=== PATIENT | male | born 1970 | race Caucasian/White ===

== ENCOUNTER 2017-12-05 18:13 | Emergency (ER) | payer OTHER, SELFPAY ==
--- NOTE | 2017-12-05 18:25 | DI.RAD.S_ITS ---
PROCEDURE: XR CHEST 1V INDICATIONS: chest pain TECHNIQUE: One view of the chest was acquired. COMPARISON: None. FINDINGS: Surgical changes and devices: None. Lungs and pleura: No pleural effusions or pneumothorax. Lungs are clear. Mediastinum: Mediastinal contours appear normal. Heart size is normal. Bones and chest wall: No suspicious bony lesions. Overlying soft tissues appear unremarkable. IMPRESSION: No acute pulmonary process. Dictated by: Philly Leary M.D. on 12/05/2017 at 19:57 Approved by: Philly Leary M.D. on 12/05/2017 at 19:57
[2017-12-05 18:27] VITALS: BP 132/82; PULSE 69; RESP 18; TEMP 36.9; O2SAT 99; BMI 29.7
[2017-12-05 19:03] LABS: Add Manual Diff / Slide Review NO; Basophils Percent Auto 0.7 % (0-2); Hematocrit 42.9 % (41-53); Hemoglobin 14.9 g/dL (13.5-17.5); Lymphocytes Percent Auto 38.3 % (25-40); Mean Corpuscular HGB Conc 34.9 % (30-36); Mean Corpuscular Hemoglobin 30.1 PG (26-34); Mean Corpuscular Volume 86.3 fL (80-100); Monocytes Percent Auto 8.1 % (3-14); Neutrophils Absolute Auto 3800 /uL (3000-5900); Neutrophils Percent Auto 50.9 % (50-75); Platelet Count 328 X10^3/uL (150-400); Red Blood Cell Count 4.97 X10^6/uL (4.5-5.9); Red Cell Distribution Width 13.2 % (11.6-14.8); White Blood Cell Count 7.6 X10^3/uL (4.5-11.0)
[2017-12-05 19:11] LABS: Alanine Aminotransferase 35 IU/L (21-72); Albumin 4.5 g/dL (3.5-5.0); Albumin Globulin Ratio 1.5 (1.0-2.8); Alkaline Phosphatase 68 U/L (38-126); Aspartate Aminotransferase 21 IU/L (17-59); Bilirubin Total 0.4 mg/dL (0.2-1.3); Blood Urea Nitrogen 14 mg/dL (9-20); Calcium 9.5 mg/dL (8.4-10.2); Carbon Dioxide 30 mmol/L (22-32); Chloride 106 mmol/L (98-107); Creatine Kinase 57 U/L (55-170); Estimated Glomerular Filt Rate > 60.0 mL/min (>60); Glucose 91 mg/dL (70-100); HEMOLYSIS < 15 (0-50); Lipase 107 U/L (23-300); Potassium 4.1 mmol/L (3.4-5.1); Sodium 145 mmol/L (137-145); Total Protein 7.5 g/dL (6.3-8.2)
--- NOTE | 2017-12-05 19:16 | PC.NURSE ---
Patient has trigeminal neuralgia and nj's espohagus with ongoing issues. States has been having left arm pain.numbness radiating up into left neck since october. Today left arm feels numb. Wanted to make sure ti was not his heart.
[2017-12-05 19:28] LABS: Troponin I < 0.012 ng/mL (0.01-0.034)
--- NOTE | 2017-12-05 19:31 | DI.CT.S_ITS ---
PROCEDURE: CT HEAD/BRAIN WO CON INDICATIONS: L arm numbness TECHNIQUE: Noncontrast 4.5 mm thick angled axial sections acquired from the foramen magnum to the vertex, with coronal and sagittal reformats. For radiation dose reduction, the following was used: automated exposure control, adjustment of mA and/or kV according to patient size. COMPARISON: None. FINDINGS: Image quality: Excellent. CSF spaces: Basal cisterns are patent. No extra-axial fluid collections. Ventricles are normal in size and shape. Brain: No midline shift. No intracranial masses or hemorrhage. Torres-white matter interface is normal. Skull and face: Calvarium and visualized facial bones are intact, without suspicious lesions. Sinuses: Visualized sinuses and mastoids are clear. IMPRESSION: No acute intracranial abnormality. Dictated by: Dom Henson M.D. on 12/05/2017 at 20:42 Approved by: Dom Henson M.D. on 12/05/2017 at 20:52
[2017-12-05 19:42] LABS: INR 1.2 (0.9-1.3); Prothrombin Time 12.6 SECONDS (10.1-12.7)
[2017-12-05 19:44] LABS: PTT Partial Thromboplastin Tim 30 SECONDS (26.4-36.2)
[2017-12-05 20:18] VITALS: BP 133/84; PULSE 66; RESP 16; O2SAT 99
[2017-12-05 20:52] VITALS: BP 143/84; PULSE 64; RESP 12; O2SAT 99
--- NOTE | 2017-12-05 21:29 | ED_ITS ---
HPI - Chest Pain General Chief Complaint: Chest Pain Stated Complaint: CHEST PAINS Time Seen by Provider: 12/05/17 18:25 Source: patient Mode of arrival: ambulatory Limitations: no limitations History of Present Illness HPI narrative: Patient presents to the emergency department today with a chief complaint of left shoulder pain and numbness on the inside of his left arm including parts of his fingers off and on for few weeks. He denies any weakness nor any injury. He has no chest pain or shortness of breath. He is not dizzy nor weak or lightheaded. He has been dealing with left-sided trigeminal neuralgia for over a year and has seen various neurologists and that on multiple medications for the treatment of this. He denies any dizziness, weakness or lightheadedness. He denies any overuse type injury. MD complaint: other Onset (ago): day(s) Duration: constant Related Data Home Medications Medication Instructions Recorded Confirmed omeprazole 20 mg PO BID 12/05/17 12/05/17 Previous Rx's Medication Instructions Recorded prednisone See Label Instructions .ROUTE 12/05/17 .COMPLEX #30 tab Allergies Allergy/AdvReac Type Severity Reaction Status Date / Time No Known Allergies Allergy Verified 12/05/17 18:33 Review of Systems Review of Systems All systems reviewed & are unremarkable except as noted in HPI and below Constitutional Denies chills, Denies fever(s), Denies lethargy and Denies weakness Eyes Denies change in vision, Denies eye discharge, Denies irritation and Denies loss of vision ENT Ears, Nose, Mouth, and Throat: Denies change in voice, Denies neck pain and Denies sore throat Cardiovascular Denies chest pain, Denies irregular heart rhythm, Denies lightheadedness, Denies palpitations, Denies dyspnea, Denies dyspnea on exertion and Denies orthopnea Respiratory Denies cough, Denies dyspnea, Denies dyspnea on exertion and Denies wheezing Gastrointestinal Gastrointestinal: Denies abdominal pain, Denies change in bowel habits, Denies diarrhea, Denies nausea and Denies vomiting Genitourinary Denies hematuria, Denies flank pain, Denies urinary incontinence and Denies urinary urgency Musculoskeletal Denies neck pain and Reports radiating pain into limb Integumentary/Breasts Denies pruritus, Denies erythema, Denies rash and Denies wounds Neurologic Denies confusion, Denies loss of vision, Reports sensory deficit and Denies weakness Psychiatric Denies anxiety, Denies confusion, Denies depression, Denies homicidal ideation and Denies suicidal ideation Endocrine Denies palpitations Hematologic/Lymphatic Denies easy bruising Allergic/Immunologic Denies wheezing [facility] Medical History Hernandez esophagus (Acute) Trigeminal neuralgia (Acute) Exam Narrative Exam Narrative: 46-year-old male resting comfortably in a dark room wearing sunglasses, apparently it helps with his trigeminal neuralgia Initial Vital Signs Initial Vital Signs: Vital Signs Temperature 98.4 F 12/05/17 18:27 Pulse Rate 69 12/05/17 18:27 Respiratory Rate 18 12/05/17 18:27 Blood Pressure 132/82 12/05/17 18:27 Pulse Oximetry 99 12/05/17 18:27 Const General: cooperative, well developed and in distress Nutritional Appearance: well nourished Orientation: alert, awake, oriented x3 and not confused HENMT Head: normocephalic and atraumatic Ears: external ears normal and TM's normal bilaterally Nose: external nose normal and No nasal discharge Face and sinus: sinuses nontender, face symmetric, no sinus tenderness and No dry mucous membranes Mouth: oral mucosae normal and moist mucous membranes Teeth and gingiva: dentition normal Throat: tonsils normal and uvula midline Eyes General: appearance normal, both eyes and all related structures Eyelids: eyelids normal Conjunctivae: conjunctivae normal Sclera: sclerae normal Pupils: PERRL EOM: EOM intact bilaterally Chest Chest: normal inspection of the chest Resp Effort & Inspection: normal respiratory effort, able to speak in complete sentences, no respiratory distress and no use of accessory muscles Auscultation: clear to auscultation bilaterally, no rales, no rhonchi and no wheezes GI Inspection: non-distended Palpation: soft, no hepatosplenomegaly, No guarding, No pulsatile mass and No tender Auscultation: normal bowel sounds Back/Spine/Pelvis Back: No CVA tenderness Cervical Spine: cervical ROM normal and No pain with cervical ROM Thoracic/Lumbar Spine: thoracic and lumbar spine normal to inspection Skin General: no rashes or lesions noted, No jaundice and No petechiae Neuro General: alert, oriented x3, gait normal and no focal motor deficits Speech: speech normal Sensory Exam: upper extremity Extrem Left upper extremity: full ROM (Patient has full strength and range of motion of left upper extremity. Only numbness is in distribution of T1 dermatome) Psych Appearance: well kempt Mental Status: mental status grossly normal Attitude: cooperative Thought Content: normal and suicidality Judgment: judgment good Scores HEART Score Heart Score history: Slightly Suspicious Heart Score EKG: Normal Heart Score Age: 45-64 years old Heart Score risk factors: No known risk factors Heart Score troponin: < or = to normal limit Heart Score Total: 1 Course Orders Ordered: ED Orders 12/05/17 21:31 CT angio head and neck Stat Vital Signs - 8 hr 12/05/17 22:42 12/05/17 23:06 Pulse Rate 70 70 Respiratory Rate 19 12 Blood Pressure [Right Arm] 149/87 H 130/74 Pulse Oximetry 100 99 MDM - Chest Pain Medical Records Data Attestation: I reviewed the patient's medical records. Lab Data Attestation: I reviewed the patient's lab results. Result diagrams: 12/05/17 18:50 12/05/17 18:50 Lab Results 12/05/17 12/05/17 12/05/17 Range/Units 18:50 18:50 18:50 WBC 7.6 (4.5-11.0) X10^3/uL RBC 4.97 (4.5-5.9) X10^6/uL Hgb 14.9 (13.5-17.5) g/dL Hct 42.9 (41-53) % MCV 86.3 (80-100) fL MCH 30.1 (26-34) PG MCHC 34.9 (30-36) % RDW 13.2 (11.6-14.8) % Plt Count 328 (150-400) X10^3/uL Neut % (Auto) 50.9 (50-75) % Lymph % (Auto) 38.3 (25-40) % Burke % (Auto) 8.1 (3-14) % Eos % (Auto) 2.0 (2-4) % Baso % (Auto) 0.7 (0-2) % Neut # (Auto) 3800 (3218-2772) /uL PT 12.6 (10.1-12.7) SECONDS INR 1.2 (0.9-1.3) APTT 30 (26.4-36.2) SECONDS Sodium 145 (137-145) mmol/L Potassium 4.1 (3.4-5.1) mmol/L Chloride 106 (98-107) mmol/L Carbon Dioxide 30 (22-32) mmol/L BUN 14 (9-20) mg/dL Creatinine 1.00 (0.66-1.25) mg/dL Estimated GFR > 60.0 (>60) mL/min BUN/Creatinine Ratio 14.0 (6-22) Glucose 91 (70-100) mg/dL Calcium 9.5 (8.4-10.2) mg/dL Total Bilirubin 0.4 (0.2-1.3) mg/dL AST 21 (17-59) IU/L ALT 35 (21-72) IU/L Alkaline Phosphatase 68 (38-126) U/L Total Creatine Kinase 57 (55-170) U/L Troponin I < 0.012 (0.01-0.034) ng/mL Total Protein 7.5 (6.3-8.2) g/dL Albumin 4.5 (3.5-5.0) g/dL Globulin 3.0 (1.7-4.1) g/dL Albumin/Globulin Ratio 1.5 (1.0-2.8) Lipase 107 (23-300) U/L Imaging Data CT scan - head: Radiologist's impression: PROCEDURE: CT HEAD/BRAIN WO CON INDICATIONS: L arm numbness TECHNIQUE: Noncontrast 4.5 mm thick angled axial sections acquired from the foramen magnum to the vertex, with coronal and sagittal reformats. For radiation dose reduction, the following was used: automated exposure control, adjustment of mA and/or kV according to patient size. COMPARISON: None. FINDINGS: Image quality: Excellent. CSF spaces: Basal cisterns are patent. No extra-axial fluid collections. Ventricles are normal in size and shape. Brain: No midline shift. No intracranial masses or hemorrhage. Torres-white matter interface is normal. Skull and face: Calvarium and visualized facial bones are intact, without suspicious lesions. Sinuses: Visualized sinuses and mastoids are clear. IMPRESSION: No acute intracranial abnormality. Dictated by: Dom Henson M.D. on 12/05/2017 at 20:42 Approved by: Dom Henson M.D. on 12/05/2017 at 20:52 Chest x-ray: Radiologist's impression: Patient: Baltazar Gibson#: [id number] : 1970Acct:[id number] Age/Sex: 46 / MDate of Service: 12/05/17 Loc: ED Accession Number: [id number] Procedure: XR chest 1V Ordering Provider: Gael Warren D.O. PROCEDURE: XR CHEST 1V INDICATIONS: chest pain TECHNIQUE: One view of the chest was acquired. COMPARISON: None. FINDINGS: Surgical changes and devices: None. Lungs and pleura: No pleural effusions or pneumothorax. Lungs are clear. Mediastinum: Mediastinal contours appear normal. Heart size is normal. Bones and chest wall: No suspicious bony lesions. Overlying soft tissues appear unremarkable. IMPRESSION: No acute pulmonary process. Dictated by: Philly Leary M.D. on 12/05/2017 at 19:57 Approved by: Philly Leary M.D. 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 Otherwise arteries are normal. No aneurysm, no dissection, normal visualize subclavian arteries bilaterally. No cervical spinal fracture MDM Narrative Medical decision making narrative: Though triaged as the chest pain the patient denies any chest pain, shortness of breath or chest pain equivalent such as dizziness, weakness or lightheadedness. He has numbness that radiates into his left upper extremity in the setting of full strength and coordination. Additionally he has pain and photophobia on the left side of his head and face which has been chronic for [address] angiogram of head and neck ordered to rule out dissection or other significant diagnosis that could link all of his complaints. Discharge Plan Departure Patient Disposition: Home Clinical Impression: Arm numbness left Discharge Date/Time: 12/06/17 00:05 Interventions: ED Discharge Assessment Last Done: 12/06/17 00:04 Instructions: DI for Numbness/tingling Activity Restrictions/Additional Instructions: *You have been diagnosed with [ left arm numbness ] *What to do: *Take medications as directed *Follow up with your primary care provider in 2-3 days, call for an appointment. Let them know you were seen in the Emergency Department and that we ask that you be seen in follow up *Return to ER if you should have any new, worsening or concerning symptoms Prescriptions: New prednisone 10 mg tablet See Label Instructions .ROUTE .COMPLEX Qty: 30 RF: 0 No Action omeprazole 20 mg Capsule,Delayed Release(Dr/Ec) 20 mg PO BID RF: 0 Referrals: Grisel Mg MD [Primary Care Provider] -
--- NOTE | 2017-12-05 21:31 | DI.CT.S_ITS ---
PROCEDURE: CT ANGIO HEAD AND NECK INDICATIONS: left facial numbness, L arm numbness, neck pain/fullness TECHNIQUE: Pre-contrast 4.5 mm thick sections acquired from the foramen magnum to the vertex. After the administration of intravenous contrast, 1 mm thick sections acquired from the aortic arch through the [place]. Post-contrast 4.5 mm thick sections then re-acquired from the foramen magnum to the vertex. 3-dimensional [id number] (MIP) and/or volume rendering reformats were acquired of the central intracranial vasculature and neck separately. COMPARISON: None. FINDINGS: Image quality: Excellent. BRAIN: CSF spaces: Ventricles are normal in size and shape. Basal cisterns are patent. No extra-axial fluid collections. Brain: No midline shift. No intracranial bleeds or masses. Torres-white matter interface appears intact. Skull and face: Calvarium and facial bones appear intact, without suspicious lesions. Orbits appear normal. Sinuses: Large mucous retention cyst versus polyp noted in the right maxillary sinus. The mastoids are clear. HEAD CT ANGIOGRAPHY: Anterior circulation: Intracranial internal carotid arteries are normal in size and flow. The flow within the paired anterior cerebral arteries is normal and symmetric. The flow within the middle cerebral arteries is normal and symmetric. The anterior communicating artery is seen. No aneurysms are seen. Posterior circulation: Visualized portions of the vertebral arteries demonstrate normal caliber, and join to form a normal appearing basilar artery. Flow within the posterior cerebral arteries is normal and symmetric. 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 No aneurysms are seen. NECK CT ANGIOGRAPHY: Carotid system: The great vessels demonstrate a conventional anatomy as they arise from the aortic arch. The origins of the common carotid arteries appear patent. The common carotid arteries demonstrate normal caliber and courses. The bifurcation regions are both widely patent. The internal carotid arteries demonstrate normal calibers and courses. Posterior circulation: The origins of the vertebral arteries both appear widely patent. The more superior extracranial portions of both vertebral arteries also demonstrate normal courses and calibers. They join to form a normal appearing basilar artery. Soft tissues: Visualized neck soft tissues demonstrate no suspicious abnormalities. Bones: No suspicious bony lesions. Spine degenerative disc disease and facet arthropathy. Visualized cervical spine appears normally aligned. IMPRESSION: 1. No large vessel occlusion, vascular stenosis, dissection or aneurysm. 2. No acute intracranial disease process. Any quantitative measurements of stenosis were performed using NASCET criteria. Dictated by: Cora De Leon MD, PhD on 12/06/2017 at 9:21 Approved by: Cora De Leon MD, PhD on 12/06/2017 at 9:28
[2017-12-05 21:35] VITALS: BP 139/93; PULSE 85; RESP 29; O2SAT 97
[2017-12-05 22:42] VITALS: BP 149/87; PULSE 70; RESP 19; O2SAT 100
[2017-12-05 23:06] VITALS: BP 130/74; PULSE 70; RESP 12; O2SAT 99
== END 2017-12-06 00:05 | disposition home or self-care (01) ==
PROVIDERS: Emergency Provider Emergency Medicine; Family Provider Internal Medicine; PCP Internal Medicine
DX: R07.89 Other chest pain (principal); R20.0 Anesthesia of skin
CPT/HCPCS: 36591; 70450; 70496; 70498; 71045; 80053; 82550; 82553; 83690; 84484; 85025; 85610; 85730; 93005; 99283; 99285; Q9967

== ENCOUNTER 2018-02-09 01:35 | Emergency (ER) | payer OTHER, SELFPAY ==
[2018-02-09 01:48] VITALS: BP 123/77; PULSE 70; RESP 16; TEMP 36.6; O2SAT 98
--- NOTE | 2018-02-09 02:41 | ED.GENADULT ---
HPI - General Adult General Chief complaint: Headache Stated complaint: headache x3 hours Time Seen by Provider: 02/09/18 02:04 Source: patient and family Mode of arrival: ambulatory Limitations: no limitations History of Present Illness HPI narrative: This is a 47-year-old male who comes to the emergency department with complaint of facial pain that is been going on for several years. Patient is seen 2 neurologists through the as well as multiple dentists. Patient states that the symptoms started after he had a root canal and seemed to spread with pressure in the face and ultimately becoming pain that is in the trigeminal area but also into the left neck region and sometimes to the shoulder arm area. Patient states he has been on carbamazepine as well as Topamax. They helped a little bit with sleep but otherwise did not improve his pain. He is about to be medically discharged because of this. He came in tonight because the pain has been slowly increasing with time Um and he woke up from sleep. Patient did not have anything to take for pain at home including Tylenol or ibuprofen. Patient is not currently on anything for pain. Patient has not had any new vision changes, no speech issues, no new weakness, no new numbness. He has pain that sometimes goes into the arm sometimes has a little bit of weakness. He had chest pain, shortness of breath. The pain is very strong he sometimes is nauseated but does not have vomiting. Patient was seen here in November had a CT of the head as well as CTA head and neck which were negative except for a retention cyst on the right which he states he has seen ENT for. He has also had a numbing medications cord into the sinus area which numbed his teeth but did not help the symptoms. He has also been recommended to have Botox although he is reluctant to do this. Related Data Home Medications Medication Instructions Recorded Confirmed omeprazole 20 mg PO BID 12/05/17 12/05/17 Previous Rx's Medication Instructions Recorded prednisone See Label Instructions .ROUTE 12/05/17 .COMPLEX #30 tab gabapentin 300 mg PO TID #30 cap 02/09/18 Allergies Allergy/AdvReac Type Severity Reaction Status Date / Time No Known Allergies Allergy Verified 12/05/17 18:33 Review of Systems Review of Systems All systems reviewed & are unremarkable except as noted in HPI and below Constitutional Denies chills, Denies fever(s), Reports headache(s), Denies lethargy and Denies weakness Eyes Denies blurry vision and Denies change in vision ENT Ears, Nose, Mouth, and Throat: Reports as per HPI, Denies abnormal hearing, Reports dental pain, Denies dizziness, Reports facial pain, Reports headache(s), Denies hearing loss, Denies mouth lesions, Reports tinnitus (left side), Denies sore throat and Denies tongue swelling Cardiovascular Denies chest pain, Denies syncope, Denies irregular heart rhythm, Denies lightheadedness, Denies dyspnea and Denies dyspnea on exertion Respiratory Denies cough, Denies dyspnea, Denies dyspnea on exertion and Denies wheezing Gastrointestinal Gastrointestinal: Denies abdominal pain, Denies change in bowel habits, Denies diarrhea, Denies nausea and Denies vomiting Musculoskeletal Reports as per HPI and Denies numbness Integumentary/Breasts Denies rash Neurologic Denies abnormal hearing, Denies abnormal speech, Denies dizziness, Denies syncope, Reports headache(s), Denies numbness, Denies other visual disturbances, Denies sensory deficit, Denies weakness and Reports other (pain face/neck) Allergic/Immunologic Denies tongue swelling and Denies wheezing [facility] Medical History Hernandez esophagus (Acute) Trigeminal neuralgia (Acute) Surgical History Hx of esophagogastroduodenoscopy (Acute) Social History Smoking Status: Former smoker Exam Narrative Exam Narrative: GEN: well nourished, well appearing male, alert and oriented x 3, patient appears to be in mild distress. patient is wearing sunglasses. HEENT: Atraumatic, pupils are equal round reactive to light, extraocular movements are intact, No nystagmus, no photophobia, nares are clear, TMs are clear with no fluid, there is no conjunctival pallor. Throat is clear without any exudates, erythema, tonsillar enlargement or uvular deviation, no facial droop. no swelling, no erythema. Patient has a a capped tooth on the left upper, no swelling patient does have some protrusion of 2 or bone at the lower lower incisors. HEART: Regular rate and rhythm without murmur, clicks, rubs. LUNGS:Lungs clear to auscultation, no wheezes, rales, crackles, chest moves symmetrically ABD:bowel sounds normal, soft, non-tender, no guarding, rebound, rigidity, no masses noted, no hepatosplenomegaly MSCL: Non-tender, no muscle atrophy, muscles strength 5/5 upper and lower extremities, full range of motion, normal gait NEURO:CN 2-12 intact, sensation normal, reflexes 2/4 upper and lower extremities. finger nose finger test normal, heel mueller test normal Initial Vital Signs Initial Vital Signs: Vital Signs Temperature 97.9 F 02/09/18 01:48 Pulse Rate 70 02/09/18 01:48 Respiratory Rate 16 02/09/18 01:48 Blood Pressure 123/77 02/09/18 01:48 Pulse Oximetry 98 02/09/18 01:48 Scores NIH Stroke Scale Level of Conciousness: Alert, keenly responsive Ask month/age: Answers both questions correctly. Open/close eyes, close hand: Performs both tasks correctly Best gaze horizontal: Normal Visual brink: No visual loss Facial palsy: Normal symetrical movement Left arm drift: No drift for full 10 sec Right arm drift: No drift for full 10 sec Left leg drift: No drift for full 10 sec Right leg drift: No drift for full 10 sec Limb ataxia: Absent Best language: No aphasia, normal Dysarthria: Normal Extinction or inattention: No abnormality Course Orders Ordered: Discontinued Medications Ketorolac Tromethamine (Toradol) 60 mg IM NOW ONE Stop: 02/09/18 02:40 Last Admin: 02/09/18 02:46 Dose: 60 mg Vital Signs - 8 hr 02/09/18 01:48 02/09/18 03:00 Temperature 97.9 F Pulse Rate 70 68 Respiratory Rate 16 16 Blood Pressure 123/77 118/74 Pulse Oximetry 98 99 Medical Decision Making Imaging Data Head and Neck Angio: Radiologist's impression: [address] [address] [address] Scan Report Signed Patient: Baltazar Gibson#: [id number] : 1970Acct:[id number] Age/Sex: 46 / MDate of Service: 12/05/17 Loc: ED Accession Number: [id number] Procedure: CT angio head and neck Ordering Provider: Gael Warren D.O. PROCEDURE: CT ANGIO HEAD AND NECK INDICATIONS: left facial numbness, L arm numbness, neck pain/fullness TECHNIQUE: Pre-contrast 4.5 mm thick sections acquired from the foramen magnum to the vertex. After the administration of intravenous contrast, 1 mm thick sections acquired from the aortic arch through the [place] of [place]. Post-contrast 4.5 mm thick sections then re-acquired from the foramen magnum to the vertex. 3-dimensional kcvfdll-twkofjhpc-anvloilsyd (MIP) and/or volume rendering reformats were acquired of the central intracranial vasculature and neck separately. COMPARISON: None. FINDINGS: Image quality: Excellent. BRAIN: CSF spaces: Ventricles are normal in size and shape. Basal cisterns are patent. No extra-axial fluid collections. Brain: No midline shift. No intracranial bleeds or masses. Torres-white matter interface appears intact. Skull and face: Calvarium and facial bones appear intact, without suspicious lesions. Orbits appear normal. Sinuses: Large mucous retention cyst versus polyp noted in the right maxillary sinus. The mastoids are clear. HEAD CT ANGIOGRAPHY: Anterior circulation: Intracranial internal carotid arteries are normal in size and flow. The flow within the paired anterior cerebral arteries is normal and symmetric. The flow within the middle cerebral arteries is normal and symmetric. The anterior communicating artery is seen. No aneurysms are seen. Posterior circulation: Visualized portions of the vertebral arteries demonstrate normal caliber, and join to form a normal appearing basilar artery. Flow within the posterior cerebral arteries is normal and symmetric. 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 No aneurysms are seen. NECK CT ANGIOGRAPHY: Carotid system: The great vessels demonstrate a conventional anatomy as they arise from the aortic arch. The origins of the common carotid arteries appear patent. The common carotid arteries demonstrate normal caliber and courses. The bifurcation regions are both widely patent. The internal carotid arteries demonstrate normal calibers and courses. Posterior circulation: The origins of the vertebral arteries both appear widely patent. The more superior extracranial portions of both vertebral arteries also demonstrate normal courses and calibers. They join to form a normal appearing basilar artery. Soft tissues: Visualized neck soft tissues demonstrate no suspicious abnormalities. Bones: No suspicious bony lesions. Spine degenerative disc disease and facet arthropathy. Visualized cervical spine appears normally aligned. IMPRESSION: 1. No large vessel occlusion, vascular stenosis, dissection or aneurysm. 2. No acute intracranial disease process. Any quantitative measurements of stenosis were performed using NASCET criteria. Dictated by: Cora De Leon MD, PhD on 12/06/2017 at 9:21 Approved by: Cora D eLeon MD, PhD on 12/06/2017 at 9:28 [facility] Narrative Medical decision making narrative: I reviewed patient's CT, head and neck CTA which showed retention shift on the right Um and other changes as noted above but nothing clearly on the left. Patient was concerned about possible mass or infection Um and we discussed that there were no clear signs of this on CT imaging. He has been referred to an manager lan or laundry equipment operator. He has also seen 2 different neurologists. We did discuss we could refer him to an additional neurologist outside of the misery him potentially [facility] for secondary evaluation. We did discuss the Botox may be helpful for his symptoms. And he has not had gabapentin so we discussed trying this medication. We did discuss something for pain this evening he did not wish for any narcotics Um and Toradol was given. Patient has also received prednisone in the past but did not have any help with this. He is not having any new symptoms they have just been slowly increasing intensity of the pain so additional workup was not done this evening. Discharge Plan Departure Patient Disposition: Home Clinical Impression: Facial pain, atypical Discharge Date/Time: 02/09/18 03:06 Interventions: ED Discharge Assessment Last Done: 02/09/18 03:00 Instructions: Gabapentin Activity Restrictions/Additional Instructions: Follow up with your provider to adjust gabapentin dosage. You may take tylenol and/or ibuprofen with this medication. Return to ER for fevers greater than 100.4F, new weakness, numbness, new speech or vision changes, passing out, persistent vomiting, or other new or concerning symptoms. Prescriptions: New gabapentin 300 mg capsule 300 mg PO TID Qty: 30 RF: 0 No Action omeprazole 20 mg Capsule,Delayed Release(Dr/Ec) 20 mg PO BID RF: 0 prednisone 10 mg tablet See Label Instructions .ROUTE .COMPLEX Qty: 30 RF: 0 Referrals: Dominick Chery DMD [Physician] - Hallie Ferguson MD [Non-Staff] - Grisel Mg MD [Primary Care Provider] - Man Curiel MD [Non-Staff] -
--- NOTE | 2018-02-09 02:45 | ED_ITS ---
HPI - General Adult General Chief complaint: Headache Stated complaint: headache x3 hours Time Seen by Provider: 02/09/18 02:04 Source: patient and family Mode of arrival: ambulatory Limitations: no limitations History of Present Illness HPI narrative: This is a 47-year-old male who comes to the emergency department with complaint of facial pain that is been going on for several years. Patient is seen 2 neurologists through the as well as multiple dentists. Patient states that the symptoms started after he had a root canal and seemed to spread with pressure in the face and ultimately becoming pain that is in the trigeminal area but also into the left neck region and sometimes to the shoulder arm area. Patient states he has been on carbamazepine as well as Topamax. They helped a little bit with sleep but otherwise did not improve his pain. He is about to be medically discharged because of this. He came in tonight because the pain has been slowly increasing with time Um and he woke up from sleep. Patient did not have anything to take for pain at home including Tylenol or ibuprofen. Patient is not currently on anything for pain. Patient has not had any new vision changes, no speech issues, no new weakness, no new numbness. He has pain that sometimes goes into the arm sometimes has a little bit of weakness. He had chest pain, shortness of breath. The pain is very strong he sometimes is nauseated but does not have vomiting. Patient was seen here in November had a CT of the head as well as CTA head and neck which were negative except for a retention cyst on the right which he states he has seen ENT for. He has also had a numbing medications cord into the sinus area which numbed his teeth but did not help the symptoms. He has also been recommended to have Botox although he is reluctant to do this. Related Data Home Medications Medication Instructions Recorded Confirmed omeprazole 20 mg PO BID 12/05/17 12/05/17 Previous Rx's Medication Instructions Recorded prednisone See Label Instructions .ROUTE 12/05/17 .COMPLEX #30 tab gabapentin 300 mg PO TID #30 cap 02/09/18 Allergies Allergy/AdvReac Type Severity Reaction Status Date / Time No Known Allergies Allergy Verified 12/05/17 18:33 Review of Systems Review of Systems All systems reviewed & are unremarkable except as noted in HPI and below Constitutional Denies chills, Denies fever(s), Reports headache(s), Denies lethargy and Denies weakness Eyes Denies blurry vision and Denies change in vision ENT Ears, Nose, Mouth, and Throat: Reports as per HPI, Denies abnormal hearing, Reports dental pain, Denies dizziness, Reports facial pain, Reports headache(s) , Denies hearing loss, Denies mouth lesions, Reports tinnitus (left side), Denies sore throat and Denies tongue swelling Cardiovascular Denies chest pain, Denies syncope, Denies irregular heart rhythm, Denies lightheadedness, Denies dyspnea and Denies dyspnea on exertion Respiratory Denies cough, Denies dyspnea, Denies dyspnea on exertion and Denies wheezing Gastrointestinal Gastrointestinal: Denies abdominal pain, Denies change in bowel habits, Denies diarrhea, Denies nausea and Denies vomiting Musculoskeletal Reports as per HPI and Denies numbness Integumentary/Breasts Denies rash Neurologic Denies abnormal hearing, Denies abnormal speech, Denies dizziness, Denies syncope, Reports headache(s), Denies numbness, Denies other visual disturbances , Denies sensory deficit, Denies weakness and Reports other (pain face/neck) Allergic/Immunologic Denies tongue swelling and Denies wheezing [facility] Medical History Hernandez esophagus (Acute) Trigeminal neuralgia (Acute) Surgical History Hx of esophagogastroduodenoscopy (Acute) Social History Smoking Status: Former smoker Exam Narrative Exam Narrative: GEN: well nourished, well appearing male, alert and oriented x 3, patient appears to be in mild distress. patient is wearing sunglasses. HEENT: Atraumatic, pupils are equal round reactive to light, extraocular movements are intact, No nystagmus, no photophobia, nares are clear, TMs are clear with no fluid, there is no conjunctival pallor. Throat is clear without any exudates, erythema, tonsillar enlargement or uvular deviation, no facial droop. no swelling, no erythema. Patient has a a capped tooth on the left upper, no swelling patient does have some protrusion of 2 or bone at the lower lower incisors. HEART: Regular rate and rhythm without murmur, clicks, rubs. LUNGS:Lungs clear to auscultation, no wheezes, rales, crackles, chest moves symmetrically ABD:bowel sounds normal, soft, non-tender, no guarding, rebound, rigidity, no masses noted, no hepatosplenomegaly MSCL: Non-tender, no muscle atrophy, muscles strength 5/5 upper and lower extremities, full range of motion, normal gait NEURO:CN 2-12 intact, sensation normal, reflexes 2/4 upper and lower extremities. finger nose finger test normal, heel mueller test normal Initial Vital Signs Initial Vital Signs: Vital Signs Temperature 97.9 F 02/09/18 01:48 Pulse Rate 70 02/09/18 01:48 Respiratory Rate 16 02/09/18 01:48 Blood Pressure 123/77 02/09/18 01:48 Pulse Oximetry 98 02/09/18 01:48 Scores NIH Stroke Scale Level of Conciousness: Alert, keenly responsive Ask month/age: Answers both questions correctly. Open/close eyes, close hand: Performs both tasks correctly Best gaze horizontal: Normal Visual brink: No visual loss Facial palsy: Normal symetrical movement Left arm drift: No drift for full 10 sec Right arm drift: No drift for full 10 sec Left leg drift: No drift for full 10 sec Right leg drift: No drift for full 10 sec Limb ataxia: Absent Best language: No aphasia, normal Dysarthria: Normal Extinction or inattention: No abnormality Course Orders Ordered: Discontinued Medications Ketorolac Tromethamine (Toradol) 60 mg IM NOW ONE Stop: 02/09/18 02:40 Last Admin: 02/09/18 02:46 Dose: 60 mg Vital Signs - 8 hr 02/09/18 01:48 02/09/18 03:00 Temperature 97.9 F Pulse Rate 70 68 Respiratory Rate 16 16 Blood Pressure 123/77 118/74 Pulse Oximetry 98 99 Medical Decision Making Imaging Data Head and Neck Angio: Radiologist's impression: [address] [address] [address] Scan Report Signed Patient: Baltazar Gibson#: [id number] : 1970Acct:[id number] Age/Sex: 46 / MDate of Service: 12/05/17 Loc: ED Accession Number: [id number] Procedure: CT angio head and neck Ordering Provider: Gael Warren D.O. PROCEDURE: CT ANGIO HEAD AND NECK INDICATIONS: left facial numbness, L arm numbness, neck pain/fullness TECHNIQUE: Pre-contrast 4.5 mm thick sections acquired from the foramen magnum to the vertex. After the administration of intravenous contrast, 1 mm thick sections acquired from the aortic arch through the [place] of [place]. Post-contrast 4.5 mm thick sections then re- acquired from the foramen magnum to the vertex. 3-dimensional maximum-intensity- projection (MIP) and/or volume rendering reformats were acquired of the central intracranial vasculature and neck separately. COMPARISON: None. FINDINGS: Image quality: Excellent. BRAIN: CSF spaces: Ventricles are normal in size and shape. Basal cisterns are patent. No extra-axial fluid collections. Brain: No midline shift. No intracranial bleeds or masses. Torres-white matter interface appears intact. Skull and face: Calvarium and facial bones appear intact, without suspicious lesions. Orbits appear normal. Sinuses: Large mucous retention cyst versus polyp noted in the right maxillary sinus. The mastoids are clear. HEAD CT ANGIOGRAPHY: Anterior circulation: Intracranial internal carotid arteries are normal in size and flow. The flow within the paired anterior cerebral arteries is normal and symmetric. The flow within the middle cerebral arteries is normal and symmetric. The anterior communicating artery is seen. No aneurysms are seen. Posterior circulation: Visualized portions of the vertebral arteries demonstrate normal caliber, and join to form a normal appearing basilar artery. Flow within the posterior cerebral arteries is normal and symmetric. 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 No aneurysms are seen. NECK CT ANGIOGRAPHY: Carotid system: The great vessels demonstrate a conventional anatomy as they arise from the aortic arch. The origins of the common carotid arteries appear patent. The common carotid arteries demonstrate normal caliber and courses. The bifurcation regions are both widely patent. The internal carotid arteries demonstrate normal calibers and courses. Posterior circulation: The origins of the vertebral arteries both appear widely patent. The more superior extracranial portions of both vertebral arteries also demonstrate normal courses and calibers. They join to form a normal appearing basilar artery. Soft tissues: Visualized neck soft tissues demonstrate no suspicious abnormalities. Bones: No suspicious bony lesions. Spine degenerative disc disease and facet arthropathy. Visualized cervical spine appears normally aligned. IMPRESSION: 1. No large vessel occlusion, vascular stenosis, dissection or aneurysm. 2. No acute intracranial disease process. Any quantitative measurements of stenosis were performed using NASCET criteria. Dictated by: Cora De Leon MD, PhD on 12/06/2017 at 9:21 Approved by: Cora De Leon MD, PhD on 12/06/2017 at 9:28 [facility] Narrative Medical decision making narrative: I reviewed patient's CT, head and neck CTA which showed retention shift on the right Um and other changes as noted above but nothing clearly on the left. Patient was concerned about possible mass or infection Um and we discussed that there were no clear signs of this on CT imaging. He has been referred to an haul cane brakeman or calender roll operator. He has also seen 2 different neurologists. We did discuss we could refer him to an additional neurologist outside of the misery him potentially [facility] for secondary evaluation. We did discuss the Botox may be helpful for his symptoms. And he has not had gabapentin so we discussed trying this medication. We did discuss something for pain this evening he did not wish for any narcotics Um and Toradol was given. Patient has also received prednisone in the past but did not have any help with this. He is not having any new symptoms they have just been slowly increasing intensity of the pain so additional workup was not done this evening. Discharge Plan Departure Patient Disposition: Home Clinical Impression: Facial pain, atypical Discharge Date/Time: 02/09/18 03:06 Interventions: ED Discharge Assessment Last Done: 02/09/18 03:00 Instructions: Gabapentin Activity Restrictions/Additional Instructions: Follow up with your provider to adjust gabapentin dosage. You may take tylenol and/or ibuprofen with this medication. Return to ER for fevers greater than 100.4F, new weakness, numbness, new speech or vision changes, passing out, persistent vomiting, or other new or concerning symptoms. Prescriptions: New gabapentin 300 mg capsule 300 mg PO TID Qty: 30 RF: 0 No Action omeprazole 20 mg Capsule,Delayed Release(Dr/Ec) 20 mg PO BID RF: 0 prednisone 10 mg tablet See Label Instructions .ROUTE .COMPLEX Qty: 30 RF: 0 Referrals: Dominick Chery DMD [Physician] - Hallie Ferguson MD [Non-Staff] - Grisel Mg MD [Primary Care Provider] - Man Curiel MD [Non-Staff] -
[2018-02-09] MEDS: KETOROLAC 60 MG/2 ML VIAL IM (02:46)
[2018-02-09 03:00] VITALS: BP 118/74; PULSE 68; RESP 16; O2SAT 99
== END 2018-02-09 03:06 | disposition home or self-care (01) ==
PROVIDERS: Emergency Provider Emergency Medicine; Family Provider Internal Medicine; PCP Internal Medicine
DX: G50.1 Atypical facial pain (principal)
CPT/HCPCS: 96372; 99282; 99283; J1885

== ENCOUNTER → 2018-04-10 11:20 | Outpatient (CLI) | payer OTHER, SELFPAY | PROVIDERS: Family Provider Internal Medicine; PCP Physician Assistant; Visit Provider Physician Assistant | DX: M79.2 Neuralgia and neuritis, unspecified (principal); G72.9 Myopathy, unspecified; R51 Headache; Z20.9 Contact with and (suspected) exposure to unspecified communicable disease | CPT/HCPCS: 36415; 87799 ==

== ENCOUNTER → 2018-05-28 17:36 | Outpatient (CLI) | payer OTHER, SELFPAY ==
--- NOTE | 2018-05-28 17:39 | DI.MRI.S_ITS ---
PROCEDURE: MR HEAD/BRAIN WO CON INDICATIONS: L facial pain for 6 years TECHNIQUE: Noncontrast axial T1 spin echo, axial T2 fast spin echo, sagittal and axial FLAIR, coronal T2 fast spin echo, axial gradient echo, axial diffusion and ADC through the brain. COMPARISON: [facility], CT, CT ANGIO HEAD AND NECK, 12/05/2017, 21:43. [facility], CT, CT HEAD/BRAIN WO CON, 12/05/2017, 19:47. [facility], MR, BRAIN (IAC) W&WO CONTRAST, 06/23/2016, 8:22. FINDINGS: Image quality: Excellent. CSF Spaces: Basal cisterns are patent. No extra-axial fluid collections. Ventricles are normal in size and shape. Brain: No intracranial masses or hemorrhage. Torres/white matter interface is normal. Brainstem appears normal. Diffusion-weighted images demonstrate no acute ischemic insult. No chronic ischemic insults. Normal intravascular flow voids are present. Skull and face: Calvarium has normal marrow signal. Orbits appear normal. Sinuses: Sinuses and mastoids are unchanged, with asymmetric mucosal thickening greater on the right than the left involving the maxillary sinuses with a moderately large mucous retention cyst largely filling the right maxillary sinus volume, previously present.. IMPRESSION: Stable sinusitis, chronic in appearance, with a large right-sided mucous retention cyst within the right maxillary sinus. Mild mucosal thickening involves the sphenoid sinus and the ethmoid air cells but without air-fluid level. Overall, the source of persistent left-sided facial pain is not found. Please note that the current study is not contrast enhanced and prior contrast-enhanced cranial nerves MRI was performed 06/23/16 also not identifying a source of these symptoms. Dictated by: Tacho Cadet M.D. on 05/29/2018 at 7:36 Approved by: Tacho Cadet M.D. on 05/29/2018 at 7:40
== END ==
PROVIDERS: PCP Physician Assistant; Visit Provider Family Medicine
DX: G50.1 Atypical facial pain (principal); J32.8 Other chronic sinusitis; J34.1 Cyst and mucocele of nose and nasal sinus
CPT/HCPCS: 70551

== ENCOUNTER → 2018-11-04 15:35 | Outpatient (CLI) | payer OTHER, SELFPAY ==
[2018-11-04 16:05] LABS: Add Manual Diff / Slide Review NO; Basophils Absolute Auto 100 /uL (0-100); Basophils Percent Auto 0.8 % (0-2); Eosinophils Absolute Auto 100 /uL (0-450); Hematocrit 42.9 % (41-53); Hemoglobin 14.7 g/dL (13.5-17.5); Lymphocytes Absolute Auto 2900 /uL (1100-4500); Lymphocytes Percent Auto 42.6 % (25-40); Mean Corpuscular HGB Conc 34.3 % (30-36); Mean Corpuscular Hemoglobin 29.4 PG (26-34); Monocytes Absolute Auto 600 /uL (0-900); Monocytes Percent Auto 8.1 % (3-14); Neutrophils Absolute Auto 3200 /uL (1500-7000); Neutrophils Percent Auto 46.5 % (50-75); Platelet Count 298 X10^3/uL (150-400); Red Blood Cell Count 4.99 X10^6/uL (4.5-5.9); Red Cell Distribution Width 13.4 % (11.6-14.8); White Blood Cell Count 6.9 X10^3/uL (4.5-11.0)
[2018-11-04 16:29] LABS: Erythrocyte Sedimentation Rate 10 MM/HR (0-15)
[2018-11-04 17:47] LABS: Alanine Aminotransferase 42 IU/L (21-72); Albumin 4.5 g/dL (3.5-5.0); Albumin Globulin Ratio 1.6 (1.0-2.8); Alkaline Phosphatase 72 U/L (38-126); Aspartate Aminotransferase 27 IU/L (17-59); BUN Creatinine Ratio 11.1 (6-22); Bilirubin Total 0.5 mg/dL (0.2-1.3); Blood Urea Nitrogen 10 mg/dL (9-20); C-Reactive Protein Quant 1.3 mg/dL (<1.0); Calcium 9.9 mg/dL (8.4-10.2); Carbon Dioxide 24 mmol/L (22-32); Chloride 104 mmol/L (98-107); Estimated Glomerular Filt Rate > 60.0 mL/min (>60); Globulin 2.9 g/dL (1.7-4.1); Glucose 88 mg/dL (70-100); Potassium 4.1 mmol/L (3.4-5.1); Sodium 140 mmol/L (137-145); Total Protein 7.4 g/dL (6.3-8.2)
[2018-11-04 17:52] LABS: Thyroid Stimulating Hormone 2.39 uIU/mL (0.47-4.68)
[2018-11-04 18:36] LABS: HEMOLYSIS 17 (0-50); Vitamin B12 328 pg/mL (239-931)
== END ==
PROVIDERS: PCP Physician Assistant; Visit Provider Physician Assistant
DX: G89.29 Other chronic pain (principal); K08.9 Disorder of teeth and supporting structures, unspecified; M79.2 Neuralgia and neuritis, unspecified; R53.83 Other fatigue
CPT/HCPCS: 36415; 80053; 82607; 84443; 85025; 85651; 86140

== ENCOUNTER → 2018-12-02 10:01 | Outpatient (CLI) | payer OTHER, SELFPAY ==
--- NOTE | 2018-12-02 10:03 | DI.MRI.S_ITS ---
PROCEDURE: MR CERVICAL SPINE WO CON INDICATIONS: chronic headache; neuropathy left arm TECHNIQUE: Noncontrast sagittal T1 spin echo and T2 fast spin echo, sagittal STIR, foraminal oblique sagittal T2 fast spin echo, and axial gradient echo or T2 fast spin echo through the cervical spine. COMPARISON: None. FINDINGS: Image quality: Excellent. Alignment and Curvature: There is trace retrolisthesis of C3 on C4, C5 on C6. Bone Marrow: Marrow demonstrates normal overall signal. Spinal Cord: Visualized spinal cord has normal signal. Mild congenital underlying stenosis is present. No cerebellar tonsillar herniation. Paraspinous Soft Tissues: No paravertebral masses. Prevertebral soft tissues are normal in thickness. Partially visualized sinuses demonstrate prominent mucosal thickening within the right maxillary sinus. Discs: Moderate desiccation is present throughout the cervical spine most notable at C5-6 and C6-7. C2-C3: No disc bulge or spinal stenosis. Minimal left foraminal narrowing with uncovertebral hypertrophy. C3-C4: Mild disc bulge with mild spinal stenosis. Moderate to severe left and mild to moderate right foraminal narrowing with uncovertebral hypertrophy. C4-C5: Mild disc bulge with mild spinal stenosis. Moderate to severe left and moderate right foraminal narrowing with uncovertebral hypertrophy. C5-C6: Mild disc bulge with moderate spinal stenosis. Severe right and mild to moderate left foraminal narrowing with uncovertebral hypertrophy. C6-C7: Mild disc bulge with moderate spinal stenosis. Severe right and moderate left foraminal narrowing with uncovertebral hypertrophy. C7-T1: No disc bulge, spinal stenosis or foraminal narrowing. IMPRESSION: 1. Multiple disc bulges. 2. Multilevel spinal stenosis most prominent at C6-7. Spinal stenosis secondary to disc bulge with contributing effect of mild underlying congenital stenosis. 3. Multilevel foraminal narrowing severe at C5-6 and C6-7 secondary to uncovertebral arthropathy. Dictated by: Philly Leary M.D. on 12/02/2018 at 14:11 Approved by: Philly Leary M.D. on 12/02/2018 at 14:16
--- NOTE | 2018-12-02 10:24 | DI.MRI.S_ITS ---
PROCEDURE: MR THORACIC SPINE WO CON INDICATIONS: chronic headache; neuropathy left arm TECHNIQUE: Noncontrast sagittal T1 spine echo and T2 fast spin echo, sagittal STIR, axial T1 and T2 fast spin echo through the thoracic spine. COMPARISON: None. FINDINGS: Image quality: Excellent. Alignment and Curvature: There is normal bony alignment. Bone Marrow: Marrow is of normal overall signal. No acute vertebral body compression fractures. Spinal Cord: Visualized spinal cord is normal in size and signal. Paraspinous Soft Tissues: No paravertebral masses. Miscellaneous: On axial images, central canal and foramina appear widely patent at all scanned levels. Multilevel disc desiccation is present. Trace scattered disc bulges are noted. IMPRESSION: 1. Multilevel disc desiccation is present with trace scattered bulges. Dictated by: Philly Leary M.D. on 12/02/2018 at 14:16 Approved by: Philly Leary M.D. on 12/02/2018 at 14:26
--- NOTE | 2018-12-02 10:24 | DI.MRI.S_ITS ---
PROCEDURE: MR LUMBAR SPINE WO CON INDICATIONS: chronic headache; neuropathy left arm TECHNIQUE: Noncontrast sagittal T1 spin echo and T2 fast echo, sagittal STIR, axial T1 and T2 fast spin echo through the lumbar spine. In cases with scoliosis, additional coronal T2 fast spin echo may be performed. COMPARISON: None. FINDINGS: Image quality: Excellent. Alignment and Curvature: There is normal bony alignment. Bone Marrow: Marrow is of normal overall signal. No acute vertebral body compression fractures. Spinal Cord: Conus medullaris terminates at the L1 level. Visualized cord demonstrates normal signal and size. Paraspinous Soft Tissues: No paravertebral masses. L1-L2: Normal appearance. L2-L3: Loss of disc signal. No central stenosis. No neural foraminal narrowing. No neural compression. L3-L4: Loss of disc signal. Mild, diffuse disc bulge. No central stenosis. No neural foraminal narrowing. No neural compression. This are noted in the posterior annulus. L4-L5: Loss of disc signal. Mild, diffuse disc bulge. Small central disc extrusion. Moderate bilateral facet hypertrophy. Mild narrowing of the central canal. Mild left neural foraminal narrowing. No neural compression. L5-S1: Loss of disc signal. Mild, diffuse disc bulge. Mild bilateral facet hypertrophy. No central stenosis. No neural foraminal narrowing. No neural compression. Fissure noted in the posterior annulus. IMPRESSION: 1. Multilevel degenerative disc disease. 2. Multilevel facet arthropathy. 3. Mild L4-L5 central canal narrowing. 4. Mild left L4-L5 neural foraminal narrowing. 5. No neural compression. 6. L3-L4 and L5-S1 disc annulus fissures. Dictated by: Cora De Leon MD, PhD on 12/02/2018 at 16:10 Approved by: Cora De Leon MD, PhD on 12/02/2018 at 16:14
== END ==
PROVIDERS: PCP Physician Assistant; Visit Provider Physician Assistant
DX: R51 Headache (principal); G56.92 Unspecified mononeuropathy of left upper limb; G57.92 Unspecified mononeuropathy of left lower limb; M24.20 Disorder of ligament, unspecified site; M50.21 Other cervical disc displacement, high cervical region; M48.02 Spinal stenosis, cervical region; M51.36 Other intervertebral disc degeneration, lumbar region; M48.061 Spinal stenosis, lumbar region without neurogenic claudication; M51.37 Other intervertebral disc degeneration, lumbosacral region; M47.816 Spondylosis without myelopathy or radiculopathy, lumbar region; M47.817 Spondylosis without myelopathy or radiculopathy, lumbosacral region
CPT/HCPCS: 72141; 72146; 72148

== ENCOUNTER 2019-08-21 19:18 | Emergency (ER) | payer OTHER, SELFPAY ==
[2019-08-21 19:25] VITALS: BP 136/85; PULSE 125; RESP 15; TEMP 36.4; O2SAT 98; BMI 29.7
[2019-08-21 20:00] LABS: Add Manual Diff / Slide Review NO; Basophils Absolute Auto 100 /uL (0-100); Basophils Percent Auto 0.8 % (0-2); Eosinophils Absolute Auto 100 /uL (0-450); Eosinophils Percent Auto 0.5 % (2-4); Hematocrit 47.6 % (41-53); Hemoglobin 16.6 g/dL (13.5-17.5); Lymphocytes Absolute Auto 2500 /uL (1100-4500); Mean Corpuscular HGB Conc 34.8 % (30-36); Mean Corpuscular Hemoglobin 30.4 PG (26-34); Mean Corpuscular Volume 87.4 fL (80-100); Monocytes Absolute Auto 900 /uL (0-900); Monocytes Percent Auto 7.1 % (3-14); Neutrophils Absolute Auto 8800 /uL (1500-7000); Neutrophils Percent Auto 71.6 % (50-75); Platelet Count 383 X10^3/uL (150-400); Red Blood Cell Count 5.45 X10^6/uL (4.5-5.9); Red Cell Distribution Width 13.6 % (11.6-14.8); White Blood Cell Count 12.3 X10^3/uL (4.5-11.0)
[2019-08-21 20:07] LABS: INR 1.1 (0.9-1.3); Prothrombin Time 12.2 SECONDS (10.1-12.7)
[2019-08-21 20:09] LABS: PTT Partial Thromboplastin Tim 32 SECONDS (26.4-36.2)
[2019-08-21 20:11] LABS: Alanine Aminotransferase 33 IU/L (<50); Albumin Globulin Ratio 1.3 (1.0-2.8); Alkaline Phosphatase 84 U/L (38-126); Aspartate Aminotransferase 32 IU/L (17-59); BUN Creatinine Ratio 11.3 (6-22); Bilirubin Total 0.7 mg/dL (0.2-1.3); Blood Urea Nitrogen 12 mg/dL (9-20); Calcium 10.3 mg/dL (8.4-10.2); Carbon Dioxide 27 mmol/L (22-32); Chloride 103 mmol/L (98-107); Estimated Glomerular Filt Rate > 60.0 mL/min (>60); Globulin 3.8 g/dL (1.7-4.1); Glucose 104 mg/dL (70-100); HEMOLYSIS < 15 (0-50); Lipase 61 U/L (23-300); Potassium 4.2 mmol/L (3.4-5.1); Sodium 140 mmol/L (137-145); Total Protein 8.8 g/dL (6.3-8.2)
[2019-08-21 21:43] VITALS: BP 143/92; PULSE 100; RESP 13; TEMP 37.4; O2SAT 98
--- NOTE | 2019-08-21 22:05 | ED.ABDPAIN ---
HPI - Abdominal Pain General Chief Complaint: Abdominal Pain Stated Complaint: Puking all day, tender stomach, low back pain Time Seen by Provider: 08/21/19 21:56 Source: patient Mode of arrival: Ambulatory Limitations: no limitations History of Present Illness HPI narrative: The patient presents with persistent and and nausea vomiting for 5 days. He has vomited 6 times today. He has no associated abdominal cramping, or diarrhea. He did have right lower abdominal pain earlier today, but has resolved. He has no URI symptoms, cough or congestion. He has no fever chills. 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 Symptoms are currently under control he is on no medications. He also has history of trigeminal neuralgia, he was previously on Neurontin, but is again using no medications at this time. He does have vasovagal syncope, he has had no weakness or dizziness. He has no urinary complaints. He has normal urine output. He works night shifts, dinner before onset of symptoms was fast food. He is ex being seen training and cramping in his abdomen that night, after eating the food. Nausea and vomiting started soon afterwards when he returned home. Related Data Home Medications Medication Instructions Recorded Confirmed omeprazole 20 mg PO BID 12/05/17 11/04/18 gabapentin 300 mg capsule 300 mg PO BID 04/10/18 11/04/18 carbamazepine 100 mg 100 mg PO BID PRN 11/04/18 11/04/18 tablet,extended release,12 hr Previous Rx's Medication Instructions Recorded ondansetron HCl [Zofran] 4 mg PO Q4H PRN #15 tab 08/22/19 Allergies Allergy/AdvReac Type Severity Reaction Status Date / Time No Known Allergies Allergy Verified 08/21/19 19:25 Review of Systems Review of Systems ROS Unobtainable: All systems reviewed & are unremarkable except as noted in HPI and below Constitutional Constitutional: Denies chills, Denies fever(s), Denies headache(s), Denies lethargy and Denies weakness ENT Ears, Nose, Mouth, and Throat: Denies headache(s), Denies mouth pain, Denies nasal congestion and Denies neck pain Cardiovascular Cardiovascular: Denies chest pain, Denies irregular heart rhythm, Denies lightheadedness, Denies dyspnea and Denies orthopnea Respiratory Respiratory: Denies cough, Denies dyspnea and Denies wheezing Gastrointestinal Gastrointestinal: Reports abdominal pain, Denies change in bowel habits, Denies diarrhea, Reports nausea and Reports vomiting Musculoskeletal Musculoskeletal: Denies back pain, Denies neck pain and Denies numbness Integumentary/Breasts Skin/Breast: Denies erythema, Denies rash and Denies wounds Neurologic Neurologic: Denies confusion, Denies headache(s), Denies numbness and Denies weakness Psychiatric Psychiatric: Denies anxiety and Denies confusion Allergic/Immunologic Allergic/Immunologic: Denies wheezing Patient History Medical History Hernandez esophagus (Acute) Trigeminal neuralgia (Acute) Surgical History Hx of esophagogastroduodenoscopy (Acute) Social History Smoking Status: Former smoker second hand exposure: No alcohol intake: current substance use type: does not use Smoking Status: Former smoker alcohol intake frequency: holidays/special occasions only Substance Use Type: does not use Exam Initial Vital Signs Initial Vital Signs: Vital Signs Temperature 97.5 F L 08/21/19 19:25 Pulse Rate 125 H 08/21/19 19:25 Respiratory Rate 15 08/21/19 19:25 Blood Pressure 136/85 08/21/19 19:25 Pulse Oximetry 98 08/21/19 19:25 Const General: cooperative and well developed Nutritional Appearance: well nourished [facility] Head: normal to inspection, normocephalic and atraumatic Mouth: oral mucosae normal Throat: posterior oropharynx normal Eyes Conjunctivae: conjunctivae normal Sclera: sclerae normal Resp Effort & Inspection: normal respiratory effort and able to speak in complete sentences Auscultation: clear to auscultation bilaterally, no rales, no rhonchi and no wheezes Cardio Rate: regular rate Rhythm: regular rhythm Heart Sounds: S1 normal, S2 normal, no click, no gallops, no murmurs and no rubs Pulses: normal peripheral pulses GI Inspection: non-distended Palpation: soft, no hepatosplenomegaly, No guarding, No pulsatile mass and tender (Mild right lower quadrant tenderness without guarding or rebound. ) Auscultation: hyperactive bowel sounds Other: Negative heel tap. Back/Spine/Pelvis Back: No CVA tenderness Cervical Spine: cervical ROM normal Thoracic/Lumbar Spine: thoracic and lumbar spine normal to inspection Skin General: no rashes or lesions noted, No jaundice and No petechiae Neuro General: alert, oriented x3, gait normal and no focal motor deficits Speech: speech normal Extrem General: full ROM, no clubbing, cyanosis or edema, no pedal edema and no calf tenderness Course Course Course Narrative: The patient is feeling much better after IV fluids and Zofran IV. He will be discharged on Zofran 0DT. Orders Ordered: Discontinued Medications Sodium Chloride (Normal Saline 0.9%) 1,000 mls @ 1,000 mls/hr IV BOLUS PRN PRN Reason: Fluid replacement Last Infusion: 08/21/19 23:45 Dose: 0 mls/hr Documented by: Admin: 08/21/19 22:27 Dose: 1,000 mls/hr Documented by: RENE Ondansetron HCl (Zofran) 4 mg IV NOW ONE Stop: 08/21/19 21:58 Last Admin: 08/21/19 22:27 Dose: 4 mg Documented by: RENE Ondansetron HCl (Zofran Odt Prepack) 1 bottle MISC SEEINSTR ONE Stop: 08/22/19 00:13 Last Admin: 08/22/19 00:25 Dose: 1 bottle Documented by: NARENDRA Pantoprazole Sodium (Protonix) 40 mg IV NOW ONE Stop: 08/21/19 22:30 Last Admin: 08/21/19 22:35 Dose: 40 mg Documented by: RENE Vital Signs Vital signs: Vital Signs - 8 hr 08/21/19 21:43 08/22/19 00:31 Temperature 99.4 F Pulse Rate 100 H 78 Respiratory Rate 13 16 Blood Pressure 148/68 H Blood Pressure [Right Arm] 143/92 H Pulse Oximetry 98 98 MDM - Abdominal Pain Lab Data Result diagrams: 08/21/19 19:54 08/21/19 19:54 Labs: Lab Results 08/21/19 08/21/19 08/21/19 Range/Units 11:45 19:54 19:54 WBC 12.3 H (4.5-11.0) X10^3/uL RBC 5.45 (4.5-5.9) X10^6/uL Hgb 16.6 (13.5-17.5) g/dL Hct 47.6 (41-53) % MCV 87.4 (80-100) fL MCH 30.4 (26-34) PG MCHC 34.8 (30-36) % RDW 13.6 (11.6-14.8) % Plt Count 383 (150-400) X10^3/uL Neut % (Auto) 71.6 (50-75) % Lymph % (Auto) 20.0 L (25-40) % [place] % (Auto) 7.1 (3-14) % Eos % (Auto) 0.5 L (2-4) % Baso % (Auto) 0.8 (0-2) % Neut # (Auto) 8800 H (3161-2498) /uL Lymph # (Auto) 2500 (8419-6373) /uL [place] # (Auto) 900 (0-900) /uL Eos # (Auto) 100 (0-450) /uL Baso # (Auto) 100 (0-100) /uL PT 12.2 (10.1-12.7) SECONDS INR 1.1 (0.9-1.3) APTT 32 D (26.4-36.2) SECONDS Sodium (137-145) mmol/L Potassium (3.4-5.1) mmol/L Chloride (98-107) mmol/L Carbon Dioxide (22-32) mmol/L BUN (9-20) mg/dL Creatinine (0.66-1.25) mg/dL Estimated GFR (>60) mL/min BUN/Creatinine Ratio (6-22) Glucose (70-100) mg/dL Calcium (8.4-10.2) mg/dL Total Bilirubin (0.2-1.3) mg/dL AST (17-59) IU/L ALT (<50) IU/L Alkaline Phosphatase (38-126) U/L Total Protein (6.3-8.2) g/dL Albumin (3.5-5.0) g/dL Globulin (1.7-4.1) g/dL Albumin/Globulin Ratio (1.0-2.8) Lipase (23-300) U/L Urine RBC None seen (0-5/HPF) Urine WBC 1-5/hpf (0-5/HPF) Ur Squamous Epith Cells 0-1 /hpf (0-5/HPF) Urine Bacteria None seen (None) Urine Mucus 1+ H (Negative) Ur Culture Indicated? Cult not indicated 08/21/19 Range/Units 19:54 WBC (4.5-11.0) X10^3/uL RBC (4.5-5.9) X10^6/uL Hgb (13.5-17.5) g/dL Hct (41-53) % MCV (80-100) fL MCH (26-34) PG MCHC (30-36) % RDW (11.6-14.8) % Plt Count (150-400) X10^3/uL Neut % (Auto) (50-75) % Lymph % (Auto) (25-40) % [place] % (Auto) (3-14) % Eos % (Auto) (2-4) % Baso % (Auto) (0-2) % Neut # (Auto) (9445-7782) /uL Lymph # (Auto) (2360-3255) /uL [place] # (Auto) (0-900) /uL Eos # (Auto) (0-450) /uL Baso # (Auto) (0-100) /uL PT (10.1-12.7) SECONDS INR (0.9-1.3) APTT (26.4-36.2) SECONDS Sodium 140 (137-145) mmol/L Potassium 4.2 (3.4-5.1) mmol/L Chloride 103 (98-107) mmol/L Carbon Dioxide 27 (22-32) mmol/L BUN 12 (9-20) mg/dL Creatinine 1.06 (0.66-1.25) mg/dL Estimated GFR > 60.0 (>60) mL/min BUN/Creatinine Ratio 11.3 (6-22) Glucose 104 H (70-100) mg/dL Calcium 10.3 H (8.4-10.2) mg/dL Total Bilirubin 0.7 (0.2-1.3) mg/dL AST 32 (17-59) IU/L ALT 33 (<50) IU/L Alkaline Phosphatase 84 (38-126) U/L Total Protein 8.8 H (6.3-8.2) g/dL Albumin 5.0 (3.5-5.0) g/dL Globulin 3.8 (1.7-4.1) g/dL Albumin/Globulin Ratio 1.3 (1.0-2.8) Lipase 61 (23-300) U/L Urine RBC (0-5/HPF) Urine WBC (0-5/HPF) Ur Squamous Epith Cells (0-5/HPF) Urine Bacteria (None) Urine Mucus (Negative) Ur Culture Indicated? Point of care testing: Urine Dip Bedside Urine Glucose Negative Bedside Urine Bilirubin + 1 Bedside Urine Ketone +/- 5 Urine Specific [place] 1.015 Bedside Urine Occult Blood - Negative Bedside Urine pH 8.0 Bedside Urine Protein +/- 15 Bedside Urine Urobilinogen +/- 1mg Bedside Urine Nitrite - Negative Bedside Urine Leukocytes +/- 15 Esterase Discharge Plan Departure Patient Disposition: Home Clinical Impression: Food poisoning Discharge Date/Time: 08/22/19 00:32 Instructions: DI for Vomiting -- Adult Activity Restrictions/Additional Instructions: Drink water regularly, consume a bland diet. Advance her diet as tolerated. Zofran every 4 hours as needed for nausea. Return to the ER for increasing pain, increasing vomiting or fever. Prescriptions: New ondansetron HCl [Zofran] 4 mg tablet 4 mg PO Q4H PRN (Reason: nausea and vomiting) Qty: 15 RF: 0 No Action gabapentin 300 mg capsule 300 mg PO BID RF: 0 carbamazepine 100 mg tablet extended release 12 hr 100 mg PO BID PRNRF: 0 omeprazole 20 mg Capsule,Delayed Release(Dr/Ec) 20 mg PO BID RF: 0 Referrals: Radha Rojas PA-C [Primary Care Provider] - Stand Alone Forms: Work Release Note
[2019-08-21] MEDS: ONDANSETRON 4 MG/2 ML INJ IV (22:27)
[2019-08-21] MEDS: SODIUM CHLORIDE 0.9% 1,000 ML 1000 ML IV (22:27)
[2019-08-21] MEDS: PANTOPRAZOLE 40 MG VIAL IV (22:35)
[2019-08-21 23:59] LABS: Bacteria Urine None Seen; RBC Urine None Seen (0-5/HPF)
[2019-08-22 00:17] LABS: Culture Indicated Urine Cult Not Indicated; Mucus Urine 1+ (Negative); Squamous Epithelial Cell Urine 0-1 /HPF (0-5/HPF); WBC Urine 1-5/HPF (0-5/HPF)
[2019-08-22] MEDS: ONDANSETRON 4 MG ODT PREPACK 1 BOTTLE MISC (00:25)
[2019-08-22 00:31] VITALS: BP 148/68; PULSE 78; RESP 16; O2SAT 98
== END 2019-08-22 00:32 | disposition home or self-care (01) ==
PROVIDERS: Emergency Provider Emergency Medicine; PCP Physician Assistant
DX: A05.9 Bacterial foodborne intoxication, unspecified (principal); R11.2 Nausea with vomiting, unspecified
CPT/HCPCS: 36415; 80053; 81003; 81015; 83690; 85025; 85610; 85730; 93005; 93010; 96361; 96374; 96375; 99284; C9113; J2405